=== PATIENT | male | born 1970 | race Two or more races ===

== ENCOUNTER 2016-12-16 21:27 | Emergency (ER) | payer BC ==
[~2016-12-16] VITALS: Ht 175.3 cm; Wt 119.5 kg
[2016-12-16 21:45] VITALS: Ht 175.3 cm; Wt 119.5 kg
[2016-12-16 22:22] LABS: BASOPHILS % 0.4 % (0.0-2.0); EOSINOPHILS # 0.3 10^3/ul (0.0-0.5); EOSINOPHILS % 2.8 % (0.0-7.0); HEMATOCRIT 47.6 % (42.0-52.0); HEMOGLOBIN 15.7 g/dl (14.0-18.0); LYMPHOCYTES # 2.7 10^3/ul (0.8-2.9); LYMPHOCYTES % 24.7 % (15.0-51.0); MEAN CORPUSCULAR HEMOGLOBIN 27.1 pg (29.0-33.0); MEAN CORPUSCULAR HGB CONC 33.1 g/dl (32.0-37.0); MEAN CORPUSCULAR VOLUME 81.9 fl (82.0-101.0); MEAN PLATELET VOLUME 10.5 fl (7.4-10.4); MONOCYTE # 0.8 10^3/ul (0.3-0.9); MONOCYTES % 7.3 % (0.0-11.0); NEUTROPHILS % 64.8 % (39.0-77.0); PLATELET COUNT 239 10^3/UL (140-440); RED BLOOD COUNT 5.81 10^6/ul (4.70-6.10); RED CELL DISTRIBUTION WIDTH 13.3 % (11.5-14.5); UNCORRECTED WBC 10.8 10^3/ul (4.8-10.8); WHITE BLOOD COUNT 10.8 10^3/ul (4.8-10.8)
[2016-12-16 22:24] LABS: CONDITION 1; LH ANALYZER COMMENTS 1
--- NOTE | 2016-12-16 22:25 | RADRPT ---
PROCEDURE: XR Chest. CLINICAL INDICATION: Chest pain TECHNIQUE: Single AP portable chest COMPARISON: None. FINDINGS: The cardiomediastinal silhouette is within normal limits of size ..The lungs are clear without pleur al effusion or focal consolidation. No pneumothorax. The osseous structures and soft tissues are unr emarkable. IMPRESSION: 1. No evidence for active cardiopulmonary disease. RPTAT:AAJJ Nelly Meeks Physician Date Time Electronically viewed and signed by Nelly Meeks Physician on 12/16/2016 22:25 ALEXA/
[2016-12-16] MEDS ORDERED: hydrALAzine 20 MG INJ IV ONE (22:30)
[2016-12-16 22:34] LABS: CHLORIDE 99 mmol/L (97-110); POTASSIUM 4.2 mmol/L (3.5-5.1); SODIUM 142 mmol/L (135-144)
[2016-12-16 22:36] LABS: INR 0.87; PROTIME 11.8 Sec (12.2-14.2); PT RATIO 0.9
[2016-12-16 22:37] LABS: ANION GAP 17 (8-16); BLOOD UREA NITROGEN 19 mg/dl (7-20); CARBON DIOXIDE 30 mmol/L (21-31); CREATININE 0.91 mg/dl (0.61-1.24); PARTIAL THROMBOPLASTIN TIME 26.2 Sec (25.0-35.0)
[2016-12-16 22:38] LABS: CALCIUM 9.8 mg/dl (8.4-10.2); GLUCOSE 143 mg/dl (70-220)
[2016-12-16] MEDS ORDERED: morphine 4 MG/ML VIAL IV STA (23:02)
[2016-12-16] MEDS ORDERED: ONDANSETRON 4 MG INJ IV STA (23:02)
[2016-12-16 23:08] LABS: TROPONIN-I < 0.012 ng/ml (0.00-0.12)
[2016-12-17] MEDS ORDERED: METOPROLOL 5 MG INJ IV ONE
[2016-12-17] MEDS ORDERED: LORAZEPAM 2 MG INJ IV ONE
--- NOTE | 2016-12-17 01:34 | ERA ---
ER Documentation Chief Complaint Date/Time DATE: 12/17/16 TIME: 01:32 Chief Complaint elevated BP BIBA HPI This is a very pleasant 46-year-old male comes in with severely elevated blood pressure headache nausea and vomiting. H patient also had mild chest pain n. Denies any shortness of breath. Denies any other current complaints. Chest pain was mild to moderate intensity no other current complaints. ROS All systems reviewed and are negative except as per history of present illness. Allergies Allergies: Coded Allergies: No Known Allergy (Unverified , 12/16/16) PMhx/Soc Medical and Surgical Hx: pt denies Surgical Hx Hx Alcohol Use: Yes Hx Substance Use: No Hx Tobacco Use: Yes Smoking Status: Current every day smoker Physical Exam Vitals Vital Signs Date Time Temp Pulse Resp B/P Pulse Ox O2 Delivery O2 Flow Rate FiO2 12/16/16 23:35 97 16 169/102 97 Room Air 12/16/16 23:15 95 19 158/99 97 Room Air 12/16/16 23:00 98 16 139/90 97 Room Air 12/16/16 22:30 95 16 127/82 96 Room Air 12/16/16 22:00 87 15 140/91 96 Room Air 12/16/16 21:55 87 16 150/93 96 Room Air 12/16/16 21:45 98.6 90 14 182/108 98 Physical Exam Const: [] Head: Atraumatic Eyes: Normal Conjunctiva ENT: Normal External Ears, Nose and Mouth. Neck: Full range of motion..~ No meningismus. Resp: Clear to auscultation bilaterally Cardio: Regular rate and rhythm, no murmurs Abd: Soft, non tender, non distended. Normal bowel sounds Skin: No petechiae or rashes Back: No midline or flank tenderness Ext: No cyanosis, or edema Neur: Awake and alert Psych: Normal Mood and Affect Result Diagram: 12/16/16214012/16/162140 Results 24 hrs Laboratory Tests Test 12/16/16 21:41 Activated Partial Thromboplast Time 26.2Sec Anion Gap 17 Basophils # 0.010^3/ul Basophils % 0.4% Blood Morphology Comment Blood Urea Nitrogen 19mg/dl Calcium Level 9.8mg/dl Carbon Dioxide Level 30mmol/L Chloride Level 99mmol/L Creatinine 0.91mg/dl Eosinophils # 0.310^3/ul Eosinophils % 2.8% Glucose Level 143mg/dl Hematocrit 47.6% Hemoglobin 15.7g/dl INR International Normalized Ratio 0.87 Lymphocytes # 2.710^3/ul Lymphocytes % 24.7% Mean Corpuscular Hemoglobin 27.1pg Mean Corpuscular Hemoglobin Concent 33.1g/dl Mean Corpuscular Volume 81.9fl Mean Platelet Volume 10.5fl Monocytes # 0.810^3/ul Monocytes % 7.3% Neutrophils # 7.010^3/ul Neutrophils % 64.8% Nucleated Red Blood Cells # 0.010^3/ul Nucleated Red Blood Cells % 0.0/100WBC Platelet Count 42434^3/UL Potassium Level 4.2mmol/L Prothrombin Time 11.8Sec Prothrombin Time Ratio 0.9 Red Blood Count 5.8110^6/ul Red Cell Distribution Width 13.3% Sodium Level 142mmol/L Troponin I < 0.012ng/ml White Blood Count 10.810^3/ul Current Medications Medications (Trade) Dose Ordered Sig/Julien Route PRN Reason Start Time Stop Time Status Last Admin Dose Admin Hydralazine HCl (Apresoline) 20 mg ONCE ONCE IV 12/16/16 22:30 12/16/16 22:31 DC 12/16/16 22:16 Morphine Sulfate (morphine) 4 mg ONCE STAT IV 12/16/16 23:02 12/16/16 23:03 DC 12/16/16 23:17 Ondansetron HCl (Zofran Inj) 4 mg ONCE STAT IV 12/16/16 23:02 12/16/16 23:03 DC 12/16/16 23:16 Metoprolol Tartrate (Lopressor) 5 mg ONCE ONCE IV 12/17/16 00:00 12/17/16 00:01 DC 12/17/16 00:21 Lorazepam (Ativan) 1 mg ONCE ONCE IV 12/17/16 00:00 12/17/16 00:01 DC 12/17/16 00:21 Procedures/MDM EKG: Rate/Rhythm: Normal Sinus Rhythm QRS, ST, T-waves: No changes consistent w/ acute ischemia Impression: No evidence of ischemia or arrhythmia Chest X-ray 1V Interpreted by me: Soft Tissue: No acute abnormalities Bones: No acute abnormalities Mediastinum/Cardiac Silhouette/Lungs: No acute abnormalities Patient's symptoms are concerning for cardiac cause will require inpatient workup and continuous monitoring. Further w/u for ischemia, arrhythmia, PE or dissection will be deferred to the inpatient team. Accepting Care Team: Current data and ongoing care discussed. Time: 1230 Primary Provider: Santana Consulting: [HUBERT] Outstanding Data: none Critical Care: Time: 45 minutes Treatments/Evaluations: Close monitoring and treatment of unstable vital signs, cardiorespiratory, and neurologic status, while maintaining tight balance of fluid, respiratory, and cardiac interventions. Departure Diagnosis: Primary Impression: Hypertensive crisis Additional Impression: Chest pain Qualified Code: R07.9 - Chest pain, unspecified type Condition: Critical NAYA HANNON Dec 17, 2016 01:33
[2016-12-17 06:09] LABS: CREATINE KINASE 58 IU/L (23-200)
[2016-12-17 06:16] LABS: CK-MB 0.36 ng/ml (0.0-2.4)
[2016-12-17 06:20] LABS: TROPONIN-I < 0.012 ng/ml (0.00-0.12)
[2016-12-17] MEDS ORDERED: ASPI-664 PO (09:00)
[2016-12-17] MEDS ORDERED: HYD25 PO (09:29)
[2016-12-17 09:38] VITALS: BP 110/68; PULSE 84; RESP 18; TEMP 98.5
== END 2016-12-17 09:39 | disposition home or self-care (01) ==
LOC: E/R 21:27
DX: I16.9 Hypertensive crisis, unspecified (principal); F17.210 Nicotine dependence, cigarettes, uncomplicated; R11.10 Vomiting, unspecified
CPT/HCPCS: 36415; 71010; 80048; 82550; 82553; 84484; 85025; 85610; 85730; 93005; 96374; 96375; 99291; J0360; J2060; J2270; J2405; Z7610